=== PATIENT | female | born 1950 | race Hispanic/Latino ===

== ENCOUNTER 2016-08-10 13:59 | Inpatient (IN) | payer MEDICARE ==
--- NOTE | 2016-08-10 15:40 | Cat Scan Report ---
CT HEAD WITHOUT CONTRAST: HISTORY: CVA. Serial contiguous axial images were obtained through the cranium. Intravenous contrast material was not administered. The ventricles are normal in size and appearance. There is no mass effect or midline shift. No areas of abnormally increased or decreased attenuation are seen. No mass lesion is seen. The mastoid air cells and visualized portions of the sinuses are normal. IMPRESSION: Cranial CT scan within normal limits.
[2016-08-10 16:10] LABS: Basophils % (Auto) 0.9 % (0.0-1.8); Eosinophils % (Auto) 3.2 % (0.0-4.3); Hematocrit 38.7 % (30.3-42.9); Hemoglobin 12.4 gm/dl (10.1-14.3); Mean Corpuscular HGB Conc 32 % (30-34); Mean Corpuscular Hemoglobin 29 pg (28-32); Mean Corpuscular Volume 92 fl (79-97); Platelet Count 356 K/mm3 (140-440); Red Blood Count 4.22 M/mm3 (3.65-5.03); Red Cell Distribution Width 15.2 % (13.2-15.2); White Blood Count 9.3 K/mm3 (4.5-11.0)
[2016-08-10 16:20] LABS: INR 0.89 (0.87-1.13)
[2016-08-10 16:21] LABS: Partial Thromboplastin Time 28.2 Sec. (24.2-36.6)
[2016-08-10 16:26] LABS: Anion Gap 17 mmol/L; BUN/Creatinine Ratio 18.88; Blood Urea Nitrogen 17 mg/dL (7-17); Calcium 9.2 mg/dL (8.4-10.2); Carbon Dioxide 30 mmol/L (22-30); Chloride 100.6 mmol/L (98-107); Glucose 126 mg/dL (65-100); Potassium 4.5 mmol/L (3.6-5.0); Sodium 143 mmol/L (137-145)
[2016-08-10] MEDS ORDERED: PLAVIX PO ONE (22:32)
--- NOTE | 2016-08-10 22:33 | Emergency Department Report ---
ED Neuro Deficit HPI - General Chief Complaint: Neuro Symptoms/Deficit Stated Complaint: RT LEG NUMBNESS Time Seen by Provider: 08/10/16 22:19 Source: patient, family, RN notes reviewed Mode of arrival: Ambulatory Limitations: No Limitations, Physical Limitation - History of Present Illness Initial Comments: This is a 65-year-old female. She is previously unknown to me. Her primary care doctor is Dr. Barros. Has a past medical history of stroke, with residual right upper extremity weakness. Patient presents to the ER with right lower extremity weakness and numbness, which she woke up with. Symptoms are constant. They have no exacerbating or relieving factors. There is no headache, neck pain, chest pain, abdominal pain , shortness of breath or cough. Irritative or obstructive urinary symptoms. No bladder or bowel retention or incontinence, no saddle anesthesia. -: Gradual, hour(s) Location: left leg Presenting Symptoms: Present: Weak/Paralyzed One Side. Absent: Sudden, Severe Headache, Blurred/Loss of Vision, Facial Droop/Numbness, Unable to Speak Clearly , Altered Mental Status History of same: Yes Place: home Severity: moderate Quality: weak, numb Improves With: none Worsens With: none On Anticoagulants: No Context: gradual onset (woke up) Associated Symptoms: denies other symptoms, weakness. denies: confusion, chest pain, cough, diaphoresis, headaches, loss of appetite, nausea/vomiting, vertigo , seizures, shortness of breath, syncope - Related Data Home Medications: Home Medications Medication Instructions Recorded Confirmed Last Taken Albuterol Sulfate [Ventolin HFA] 2 puff IH Q4H PRN 08/11/16 08/11/16 08/09/16 Albuterol Sulfate [Ventolin HFA] See Protocol 08/11/16 08/09/16 AtorvaSTATin [Lipitor] 08/11/16 Unknown Benzonatate 200 mg PO 08/11/16 Unknown Gabapentin [Neurontin] 600 mg PO Q8H 08/11/16 08/11/16 08/09/16 Lansoprazole [Prevacid] 08/11/16 Unknown Lidocain2.5%/Prilocai2.5% 08/11/16 Unknown Lisinopril [Zestril TAB] 08/11/16 Unknown Morphine ER [Ms Contin ER] 15 mg PO 08/11/16 Unknown Tizanidine HCl [tiZANidine] 08/11/16 Unknown Zolpidem [Ambien] 10 mg PO QHS 08/11/16 08/11/16 08/10/16 glipiZIDE [Glucotrol] 08/11/16 08/09/16 metFORMIN [Glucophage] 08/11/16 08/09/16 oxyCODONE /ACETAMINOPHEN [Percocet 1 tab PO Q6HR PRN 08/11/16 08/11/16 08/10/16 5/325] Allergies/Adverse Reactions: Allergies Allergy/AdvReac Type Severity Reaction Status Date / Time aspirin Allergy Hives Verified 08/10/16 14:45 codeine Allergy Hives Verified 08/10/16 14:45 iodine Allergy Rash Verified 08/10/16 14:45 latex Allergy Rash Verified 08/10/16 14:45 povidone-iodine Allergy Rash Verified 08/10/16 14:45 [From Betadine] soap [From Betadine] Allergy Rash Verified 08/10/16 14:45 ED Review of Systems ROS: Stated complaint: RT LEG NUMBNESS Other details as noted in HPI Constitutional: denies: fever Eyes: denies: eye discharge ENT: denies: epistaxis Respiratory: denies: cough Cardiovascular: denies: chest pain Gastrointestinal: denies: abdominal pain Genitourinary: denies: urgency Musculoskeletal: as per HPI Skin: denies: lesions Neurological: weakness, abnormal gait ED Past Medical Hx - Past Medical History Previous Medical History?: Yes Hx CVA: Yes (right sided weakness) Hx Asthma: Yes Additional medical history: osteoarthritis, chronic pain - Surgical History Past Surgical History?: Yes Additional Surgical History: nerve stimulator, hysterectomy - Social History Smoking Status: Never Smoker Substance Use Type: None - Medications Home Medications: Home Medications Medication Instructions Recorded Confirmed Last Taken Type Albuterol Sulfate [Ventolin HFA] 2 puff IH Q4H PRN 08/11/16 08/11/16 08/09/16 History Albuterol Sulfate [Ventolin HFA] See Protocol 08/11/16 08/09/16 History AtorvaSTATin [Lipitor] 08/11/16 Unknown History Benzonatate 200 mg PO 08/11/16 Unknown History Gabapentin [Neurontin] 600 mg PO Q8H 08/11/16 08/11/16 08/09/16 History Lansoprazole [Prevacid] 08/11/16 Unknown History Lidocain2.5%/Prilocai2.5% 08/11/16 Unknown History Lisinopril [Zestril TAB] 08/11/16 Unknown History Morphine ER [Ms Contin ER] 15 mg PO 08/11/16 Unknown History Tizanidine HCl [tiZANidine] 08/11/16 Unknown History Zolpidem [Ambien] 10 mg PO QHS 08/11/16 08/11/16 08/10/16 History glipiZIDE [Glucotrol] 08/11/16 08/09/16 History metFORMIN [Glucophage] 08/11/16 08/09/16 History oxyCODONE /ACETAMINOPHEN [Percocet 1 tab PO Q6HR PRN 08/11/16 08/11/16 08/10/16 History 5/325] ED Neuro Physical Exam - General Limitations: Physical Limitation General appearance: alert, in no apparent distress Suspected Stroke: Yes - Head Head exam: Present: atraumatic, normocephalic - Eye Eye exam: Present: normal appearance, EOMI. Absent: nystagmus - ENT ENT exam: Present: normal exam, normal orophraynx, mucous membranes moist, normal external ear exam - Neck Neck exam: Present: normal inspection, full ROM. Absent: tenderness, meningismus - Respiratory Respiratory exam: Present: normal lung sounds bilaterally. Absent: respiratory distress, wheezes, rales, rhonchi, stridor, chest wall tenderness - Cardiovascular Cardiovascular Exam: Present: regular rate, normal rhythm, normal heart sounds. Absent: bradycardia, tachycardia, irregular rhythm, systolic murmur, diastolic murmur, rubs, gallop - GI/Abdominal GI/Abdominal exam: Present: soft, normal bowel sounds. Absent: distended, tenderness, guarding, rebound, rigid, pulsatile mass - Extremities Exam Extremities exam: Present: normal inspection, normal capillary refill, other ( there is 5/5 strength left upper extremity, left lower extremity. Sensation intact to light touch and pain in the left upper extremity, left lower extremity. Right upper extremity is 4/5 strength. This is chronic.Right lower extremity is 3/5 strength. Unable to lift against gravity. Decreased sensation to light touch and pinprick. This is new.). Absent: full ROM, tenderness, pedal edema, joint swelling, calf tenderness - Back Exam Back exam: Present: normal inspection - Neurological Exam Neurological exam: Present: alert, oriented X3 - NIHSS Assessment Interval: Baseline 1a. Level of Consciousness: alert 1b. LOC Questions: answers correctly 1c. LOC Commands: performs tasks correctly 2. Best Gaze: normal 3. Visual: no visual loss 4. Facial Palsy: normal symmetrical movement 5b. Motor Arm Right: drift 5a. Motor Arm Left: no drift 6a. Motor Leg Left: no drift 6b. Motor Leg Right: some gravity effort 7. Limb Ataxia: absent 8. Sensory: mild/moderate sensory loss 9. Best Language: no aphasia 10. Dysarthria: normal 11. Extinction/Inattention: no abnormality Total Score: 4 Stroke Severity: Minor Stroke - Psychiatric Psychiatric exam: Present: normal affect, normal mood - Skin Skin exam: Present: warm, dry, intact, normal color. Absent: rash ED Course Vital Signs 08/10/16 14:37 Temperature 98.0 F Pulse Rate 84 Blood Pressure 160/86 O2 Sat by Pulse 99 Oximetry - Reevaluation(s) Reevaluation #1: 08/10/16 23:14 differential diagnosis: Peripheral neuropathy, subacute stroke, wake up stroke, urinary tract infection, pneumonia Assessment and plan: 65-year-old female who woke up with right lower extremity weakness and numbness which is worse than her baseline. Left lower extremities strength and sensation are intact. There is no bladder or bowel retention or incontinence, there is no saddle anesthesia, her clinical history does not suggest epidural compression syndrome. She is not a TPA candidate as she woke up with symptoms. She is not taking antiplatelet medication at this time. Urinalysis is pending. Noncontrast CT scan of the head essentially negative. Patient to be admitted for further evaluation and workup for presumed subacute stroke. Case is discussed with the Hospital physician, Dr. Olguin, who accepts the patient to her service. - Lab Data Result diagrams: 08/10/16 15:48 08/10/16 15:48 Lab Results 08/10/16 08/10/16 08/10/16 Range/Units 15:48 15:48 15:48 WBC 9.3 (4.5-11.0) K/mm3 RBC 4.22 (3.65-5.03) M/mm3 Hgb 12.4 (10.1-14.3) gm/dl Hct 38.7 (30.3-42.9) % MCV 92 (79-97) fl MCH 29 (28-32) pg MCHC 32 (30-34) % RDW 15.2 (13.2-15.2) % Plt Count 356 (140-440) K/mm3 Lymph % (Auto) 27.4 (13.4-35.0) % [place] % (Auto) 6.9 (0.0-7.3) % Eos % (Auto) 3.2 (0.0-4.3) % Baso % (Auto) 0.9 (0.0-1.8) % Lymph # 2.5 (1.2-5.4) K/mm3 [place] # 0.6 (0.0-0.8) K/mm3 Eos # 0.3 (0.0-0.4) K/mm3 Baso # 0.1 (0.0-0.1) K/mm3 Seg Neutrophils % 61.6 (40.0-70.0) % Seg Neutrophils # 5.7 (1.8-7.7) K/mm3 PT 11.9 L (12.2-14.9) Sec. INR 0.89 (0.87-1.13) APTT 28.2 (24.2-36.6) Sec. Thrombin Time (15.1-19.6) Sec. Sodium 143 (137-145) mmol/L Potassium 4.5 (3.6-5.0) mmol/L Chloride 100.6 (98-107) mmol/L Carbon Dioxide 30 (22-30) mmol/L Anion Gap 17 mmol/L BUN 17 (7-17) mg/dL Creatinine 0.9 (0.7-1.2) mg/dL Estimated GFR > 60 ml/min BUN/Creatinine Ratio 18.88 % Glucose 126 H (65-100) mg/dL Calcium 9.2 (8.4-10.2) mg/dL Troponin T < 0.010 (0.00-0.029) ng/mL 08/10/16 Range/Units 15:48 WBC (4.5-11.0) K/mm3 RBC (3.65-5.03) M/mm3 Hgb (10.1-14.3) gm/dl Hct (30.3-42.9) % MCV (79-97) fl MCH (28-32) pg MCHC (30-34) % RDW (13.2-15.2) % Plt Count (140-440) K/mm3 Lymph % (Auto) (13.4-35.0) % [place] % (Auto) (0.0-7.3) % Eos % (Auto) (0.0-4.3) % Baso % (Auto) (0.0-1.8) % Lymph # (1.2-5.4) K/mm3 [place] # (0.0-0.8) K/mm3 Eos # (0.0-0.4) K/mm3 Baso # (0.0-0.1) K/mm3 Seg Neutrophils % (40.0-70.0) % Seg Neutrophils # (1.8-7.7) K/mm3 PT (12.2-14.9) Sec. INR (0.87-1.13) APTT (24.2-36.6) Sec. Thrombin Time 15.1 (15.1-19.6) Sec. Sodium (137-145) mmol/L Potassium (3.6-5.0) mmol/L Chloride (98-107) mmol/L Carbon Dioxide (22-30) mmol/L Anion Gap mmol/L BUN (7-17) mg/dL Creatinine (0.7-1.2) mg/dL Estimated GFR ml/min BUN/Creatinine Ratio % Glucose (65-100) mg/dL Calcium (8.4-10.2) mg/dL Troponin T (0.00-0.029) ng/mL When compared to previous EKG there are: previous EKG unavailable 08/10/16 23:16 with normal sinus, 79 bpm, low voltage, left axis, not consistent with STEMI, Q waves noted in the high lateral leads. Not morphologically consistent with STEMI. - Radiology Data Radiology results: report reviewed, image reviewed Noncontrast CAT scan of the head is negative. X-ray of the chest is negative. Critical care attestation.: If time is entered above; I have spent that time in minutes in the direct care of this critically ill patient, excluding procedure time. ED Disposition Clinical Impression: Right leg weakness, History of stroke Disposition: OP ADMITTED IP TO THIS HOSP Is pt being admited?: Yes Condition: Stable
[2016-08-10] MEDS ORDERED: DULCOLAX PR PRN (23:40)
[2016-08-10] MEDS ORDERED: DUONEB 0.5 MG-3 MG/3 ML SOLN IH PRN (23:40)
[2016-08-10] MEDS ORDERED: MILK OF MAGNESIA PO PRN (23:40)
[2016-08-10] MEDS ORDERED: SODIUM CHLORIDE FLUSH SYRINGE 10 ML IV PRN (23:40)
[2016-08-10] MEDS ORDERED: AMBIEN PO PRN (23:40)
[2016-08-10] MEDS ORDERED: ZOFRAN IV PRN (23:40)
[2016-08-10] MEDS ORDERED: TYLENOL PO PRN (23:40)
[2016-08-10] MEDS ORDERED: PHENERGAN PR PRN (23:40)
[2016-08-10] MEDS ORDERED: REGLAN PO PRN (23:40)
--- NOTE | 2016-08-10 23:40 | History and Physical Report ---
History of Present Illness Date of examination: 08/10/16 Date of admission: 08/10/16 23:17 Chief complaint: Right LE weakness History of present illness: This is a 65-year-old female with a past medical history of stroke, with residual right upper extremity weakness, presents to the ER with right lower extremity weakness and numbness. Patient states that she woke up with these symptom. There is no headache, neck pain, chest pain, abdominal pain, shortness of breath or cough. CT head did not show any acute process, she is getting admitted with stroke protocol. Past medical History: h/o HTN, DM2, CVA 2005 with RUE weakness. Chronic back pain. h/o asthma. Her primary care doctor is Dr. Barros. Past surgical History: s/p Hysterectomy, right breast lumpectomy. Back spinal stimulator placement 3 years ago. Social History: Lives with family, denies any smoking, drinking and elicit drug abuse. Family History: Significant for DM and HTN. Review of System: Constitutional: no fever, no chills, no weight loss Ears, eyes, nose, mouth and throat: no nasal congestion, no nasal discharge, no sinus pressure, no vision change, no red eye. Neck: No neck pain or rigidity. Cardiovascular: No chest pain, no orthopnea, no palpitations, no leg swelling Respiratory: No shortness of breath, no cough, no congestion, no wheezing Gastrointestinal: no abdominal pain, no nausea, no vomiting Genitourinary : no dysuria, no hematuria Musculoskeletal: no joint swelling or muscle ache, chronic back pain Integumentary: no rash, no pruritis Neurological: left lower extrimity weakness Endocrine: no cold or heat intolerance, no polyuria or polydipsia Hematologic/Lymphatic: no easy bruising, no easy bleeding, no gland swelling Allergic/Immunologic: no urticaria, no angioedema. Medications and Allergies Allergies Allergy/AdvReac Type Severity Reaction Status Date / Time aspirin Allergy Hives Verified 08/10/16 14:45 codeine Allergy Hives Verified 08/10/16 14:45 iodine Allergy Rash Verified 08/10/16 14:45 latex Allergy Rash Verified 08/10/16 14:45 povidone-iodine Allergy Rash Verified 08/10/16 14:45 [From Betadine] soap [From Betadine] Allergy Rash Verified 08/10/16 14:45 Home Medications Medication Instructions Recorded Confirmed Last Taken Type Albuterol Sulfate [Ventolin HFA] 2 puff IH Q4H PRN 08/11/16 08/11/16 08/09/16 History Albuterol Sulfate [Ventolin HFA] See Protocol 08/11/16 08/09/16 History AtorvaSTATin [Lipitor] 08/11/16 Unknown History Benzonatate 200 mg PO 08/11/16 Unknown History Gabapentin [Neurontin] 600 mg PO Q8H 08/11/16 08/11/16 08/09/16 History Lansoprazole [Prevacid] 08/11/16 Unknown History Lidocain2.5%/Prilocai2.5% 08/11/16 Unknown History Lisinopril [Zestril TAB] 08/11/16 Unknown History Morphine ER [Ms Contin ER] 15 mg PO 08/11/16 Unknown History Tizanidine HCl [tiZANidine] 08/11/16 Unknown History Zolpidem [Ambien] 10 mg PO QHS 08/11/16 08/11/16 08/10/16 History glipiZIDE [Glucotrol] 08/11/16 08/09/16 History metFORMIN [Glucophage] 08/11/16 08/09/16 History oxyCODONE /ACETAMINOPHEN [Percocet 1 tab PO Q6HR PRN 08/11/16 08/11/16 08/10/16 History 5/325] Exam - Physical Exam Narrative exam: GENERAL: This is well-developed obese WF lying on bed appeared to be in no discomfort. HEENT: Normocephalic. Atraumatic. Extraocular motions are intact. No conjunctival congestion or icterus. Patient has moist mucous membranes. External auditory canal and nares patent bilaterally. NECK: Supple. Trachea midline. No JVD, thyromagaly or lymphadenopathy. CHEST/LUNGS: Clear to auscultated bilaterally. There is no respiratory distress noted, breathing nonlabored. No wheezes crackles or rhonchi. HEART/CARDIOVASCULAR: Regular in rate and rhythm. PMI at the apex. There is no gallop rub or murmur. ABDOMEN: Abdomen is soft, nontender. Patient has normal bowel sounds. There is no abdominal distention. No organomagaly or rigidity. SKIN: There is no rash, no erythrema. There is no diaphoresis. Warm and dry. NEUROLOGY: The patient is awake, alert, and oriented. The patient is cooperative. The patient has normal speech. Right lower extrimity weakness with foot drop. MUSCULOSKELETAL: No joint effusion or tenderness. Muscle strength equal bilaterally. No muscle wasting. EXTRIMITY: No edema, cyanosis or clubbing. PSYCH: No depression or anxiety noted. Cooperative. - Constitutional Vitals: Temp Pulse Resp BP Pulse Ox 98.0 F 84 160/86 99 08/10/16 14:37 08/10/16 14:37 08/10/16 14:37 08/10/16 14:37 Results - Labs CBC & Chem 7: 08/10/16 15:48 08/10/16 15:48 Labs: Laboratory Last Values WBC 9.3 K/mm3 (4.5-11.0) 08/10/16 15:48 RBC 4.22 M/mm3 (3.65-5.03) 08/10/16 15:48 Hgb 12.4 gm/dl (10.1-14.3) 08/10/16 15:48 Hct 38.7 % (30.3-42.9) 08/10/16 15:48 MCV 92 fl (79-97) 08/10/16 15:48 MCH 29 pg (28-32) 08/10/16 15:48 MCHC 32 % (30-34) 08/10/16 15:48 RDW 15.2 % (13.2-15.2) 08/10/16 15:48 Plt Count 356 K/mm3 (140-440) 08/10/16 15:48 Lymph % (Auto) 27.4 % (13.4-35.0) 08/10/16 15:48 [place] % (Auto) 6.9 % (0.0-7.3) 08/10/16 15:48 Eos % (Auto) 3.2 % (0.0-4.3) 08/10/16 15:48 Baso % (Auto) 0.9 % (0.0-1.8) 08/10/16 15:48 Lymph # 2.5 K/mm3 (1.2-5.4) 08/10/16 15:48 [place] # 0.6 K/mm3 (0.0-0.8) 08/10/16 15:48 Eos # 0.3 K/mm3 (0.0-0.4) 08/10/16 15:48 Baso # 0.1 K/mm3 (0.0-0.1) 08/10/16 15:48 Seg Neutrophils % 61.6 % (40.0-70.0) 08/10/16 15:48 Seg Neutrophils # 5.7 K/mm3 (1.8-7.7) 08/10/16 15:48 PT 11.9 Sec. (12.2-14.9) L 08/10/16 15:48 INR 0.89 (0.87-1.13) 08/10/16 15:48 APTT 28.2 Sec. (24.2-36.6) 08/10/16 15:48 Thrombin Time 15.1 Sec. (15.1-19.6) 08/10/16 15:48 Sodium 143 mmol/L (137-145) 08/10/16 15:48 Potassium 4.5 mmol/L (3.6-5.0) 08/10/16 15:48 Chloride 100.6 mmol/L (98-107) 08/10/16 15:48 Carbon Dioxide 30 mmol/L (22-30) 08/10/16 15:48 Anion Gap 17 mmol/L 08/10/16 15:48 BUN 17 mg/dL (7-17) 08/10/16 15:48 Creatinine 0.9 mg/dL (0.7-1.2) 08/10/16 15:48 Estimated GFR > 60 ml/min 08/10/16 15:48 BUN/Creatinine Ratio 18.88 % 08/10/16 15:48 Glucose 126 mg/dL (65-100) H 08/10/16 15:48 Calcium 9.2 mg/dL (8.4-10.2) 08/10/16 15:48 Troponin T < 0.010 ng/mL (0.00-0.029) 08/10/16 15:48 - Imaging and Cardiology Chest x-ray: pending CT Scan - head: report reviewed (no acute infract) Assessment and Plan Assessment and plan: Possible acute CVA History of previous CVA with right upper extremity weakness Right LE weakness, new onset DM type 2 HTN, uncontrolled h/o asthma , stable chronic back pain Plan: Admit to medicine I'll obtain 2-D echo, MRI of the brain, carotid Doppler Place neurologic consult PT OT and ST vital Cardiac diet if clear by ST Monitor BP GI and DVT prophylaxis Place on aspirin and statin resume home meds If MRI head negative then need work up for lumber spinal pathology for her symptom. Advance Directives: Yes Plan of care discussed with patient/family: Yes
[2016-08-11 00:10] LABS: Bacteria,Urine 1+ /HPF (Negative); Bilirubin,Urine NEG (Negative); Blood,Urine SM (Negative); Ketones,Urine NEG (Negative); Leukocyte Esterase,Urine SM (Negative); Mucus,Urine FEW /HPF; Nitrite,Urine NEG (Negative); Protein,Urine <15 mg/dL mg/dL (Negative); Urobilinogen,Urine < 2.0 mg/dL (<2.0)
[2016-08-11] MEDS ORDERED: PROVENTIL IH PRN (02:10)
[2016-08-11] MEDS: NORCO 5/325 PO PRN ×2 (03:11→17:18)
[2016-08-11] MEDS ORDERED: PROAIR IH PRN (06:30)
[2016-08-11] MEDS ORDERED: PERCOCET 5/325 PO PRN (06:30)
--- NOTE | 2016-08-11 08:05 | XRay Report ---
AP CHEST : 08/10/16 CLINICAL: Altered mental status. COMPARISON:None FINDINGS: Normal heart and pulmonary vessels. The lungs are normally expanded and clear. A neurostimulator is identified in the mid thoracic spine. IMPRESSION: No acute cardiopulmonary process.
[2016-08-11] MEDS: DUONEB 0.5 MG-3 MG/3 ML SOLN IH SCH ×3 (08:09→20:03)
[2016-08-11] MEDS: TESSALON PERLES PO SCH ×2 (08:34→17:14)
[2016-08-11] MEDS: COLACE PO SCH ×3 (08:34→22:17)
[2016-08-11] MEDS: PEPCID IV SCH ×3 (08:34→22:17)
[2016-08-11] MEDS: NEURONTIN PO SCH ×2 (08:34→17:15)
--- NOTE | 2016-08-11 09:30 | Admit Criteria Form ---
Admission Criteria Documentation: NEUROLOGY GRG Clinical Indications for Admission to Inpatient Care (Place ' X' for any and all applicable criteria): Hospital admission is needed for appropriate care of the patient because of ANY ONE of the following: [ ]I. New-onset or worsening altered mental status remaining after emergency or observation level care (as appropriate) (9)(10)(11) [ ]II. Severe YEAST FERMENTATION ATTENDANT infections or inflammatory conditions, including ANY ONE of the following(1)(2)(3): [ ]a) Intracranial abscess [ ]b) Spinal abscess or myelitis [ ]c) Tuberculous or other nonbacterial, nonviral YEAST FERMENTATION ATTENDANT infection(8) [ ]III. Encephalitis(1)(2)(3) [ ]IV. Status epilepticus or repetitive seizures not controlled with emergent treatment [A] (7)(8) [ ]V. Transient alteration in consciousness with high-risk etiology; examples include (12)(13): [ ]a) Cardiovascular source [ ]b) Cataplexy [ ]. Cerebral aneurysm requiring ANY ONE of the following(14): [ ]a) IV antihypertensives or vasoactive agents [ ]b) Sedation and analgesia for suspected leak [ ]c) Need for external ventricular drainage and cerebral perfusion pressure monitoring [ ]d) Emergent evaluation to determine need for surgical clipping or endovascular coiling by interventional radiology. If surgery is required ( Also use Craniotomy, Supratentorial, for Surgery of Bleeding Intracranial Aneurysm (for bleeding aneurysm) or Craniotomy, Supratentorial (for nonbleeding aneurysm) as appropriate. [ ]VII. Altered mental status that is severe or persistent(16) [ ]VIII New-onset severe neurologic findings requiring inpatient care; examples include: [ ]a) Papilledema [ ]b) Cerebral edema [ ]c) Mass effect on imaging [ ]IX. New-onset severe neurologic symptom requiring inpatient care indicated by ANY ONE of the following: [ ]a) Aphasia(15) [ ]b) Weakness (grade 3 or less) [ ]c) Paralysis (eg, hemiplegia) [ ]d) Spasticity(16) [ ]e) Ataxia(17) [ ]f) Amnesia(18) [ ]g) Involuntary movements(19) [ ]h) Vertigo [ ]i) Other severe neurologic symptom not treatable at alternative level of care (eg, observation care) [ ]X. Guillain-Abbotsford syndrome(20) [ ]XI. Myasthenia gravis crisis or inpatient monitoring need as indicated by ANY ONE of the following(21): [ ]a) Inadequate airway protection [ ]b) Respiratory insufficiency requiring intubation or inpatient. monitoring [ ]c) Progressive dysphagia with failure to thrive [ ]d) Intensive treatment (eg, course of plasmapheresis) with inadequate outpatient situation to monitor patients status [ ]XII. Multiple sclerosis or other acute demyelinating disease requiring inpatient care as indicated by ANY ONE of the following (22)(23): [ ]a) Acute severe deterioration requiring inpatient treatment (eg, IV steroids, plasmapheresis, close observation) [ ]b) Acute complication requiring inpatient care (eg, sepsis, severe decubitus, aspiration) [ ]XIII. Intracranial hypertension (eg, pseudotumor cerebri) requiring inpatient care (eg, acute visual loss, inadequate oral intake) (24) [ ]XIV.Parkinson disease requiring inpatient care (Also use Optimal Recovery Care Criteria or General Recovery Criteria as appropriate) indicated by ANY ONE of the following(25): [ ]a) Infection (eg, aspiration pneumonia) not treatable at alternative level of care [ ]b) Volume depletion not responsive to emergency and observation care treatment (as appropriate) [ ]c) Life-threatening agitation or psychotic behavior not treatable on emergency, observation care, or alternative level (eg, residential) basis [ ]d) Severe medication withdrawal effects (eg, freezing, neuroleptic malignant syndrome) not responsive to emergency and observation care treatment (as appropriate) [ ]e) Other severe manifestation not treatable at alternative level of care [ ]XV.Amyotrophic lateral sclerosis with inpatient care needs as indicated by ANY ONE of the following(26): [ ]a) Acute complications requiring inpatient care (Use Optimal Recovery Care Criteria or General Recovery Criteria as appropriate); examples include: [ ]i) Aspiration pneumonia [ ]ii) Sepsis [ ]b) Dehydration or hypovolemia (not responsive to emergency and observation care treatment as appropriate) AND artificial support desired [ ]c) Inadequate airway protection AND artificial support desired [ ]d) Severe ventilatory insufficiency AND artificial support desired [ ]XVI.Severe myopathy, neuropathy, or other neuromuscular disease as indicated by ANY ONE of the following: [ ]a) New-onset severe diffuse weakness (eg, strength 3/5 or less) [ ]b) Severe dysphagia [ ]c) Dyspnea at rest or with minimal exertion (new) [ ]d) Inadequate airway protection [ ]e) Inadequate ventilation as indicated by ANY ONE of the following : [ ]i) Partial pressure of carbon dioxide greater than 44 mm Hg (5.9 kPa) (new) [ ]ii) Reduced peak expiratory flow rate (new) [ ]iii) Vital capacity less than 50% of predicted ( less than 15 mL/kg) [ ]iv) Peak inspiratory force less negative than -30 cm H20 (-2942 Pa) [ ]XVII.Complications of congenital or degenerative disease (eg, infection, seizures, dehydration, injury) not responsive to emergency and observation care treatment (as appropriate ) [C](16)(29)(30) [ ]XVIII.Suspected or confirmed nerve or muscle toxic injury, including ANY ONE of the following: [ ]a) Rhabdomyolysis(31) [ ]b) Botulism(32) [ ]c) Other severe toxin-induced sign or symptom [ ]XIX. Neurologic trauma requiring inpatient treatment (medical) indicated by ANY ONE of the following(33)(34): [ ]a) Vital signs or neurologic signs more frequently than every 4 hours [ ]b) Hyperosmolar therapy [ ]c) Respiratory monitoring [ ]d) Intracranial pressure monitoring and treatment [ ]e) Stabilization and immobilization device placement (eg, braces, body jacket) [ ]f) Intubation & mechanical ventilation for airway protection or therapeutic hyperventilation [ ]g) Other treatment or monitoring needed that requires inpatient level of care [ ]XX.Complications of neurologic devices (eg, ventricular shunt, neurostimulator) requiring ANY ONE of the following(35)(36): [ ]a) IV antibiotics with monitoring while awaiting culture results [ ]b) Monitoring for hydrocephalus [ ]XXI Vasculitis with ANY ONE of the following(4)(5): [ ]a) Altered mental status [ ]b) Psychosis [ ]c) Seizures [X ]XXII. Neurology condition and ALL of the following: [ X]a) Symptom or finding for which emergency and observation care have failed or are not considered appropriate (Use General Criteria: Observation Care as appropriate) [ X]b) Presence of ANY ONE of the following: [X]i) A General Admission Criteria [ ]ii A Pediatric General Admission Criteria The original [facility] content created by [facility] has been revised. The portions of the content which have been revised are identified through the use of italic text or in bold, and [facility] has neither reviewed nor approved the modified material. All other unmodified content is copyright [facility] Please see references footnoted in the original [facility] edition 2016 Admission Criteria Met: Yes
[2016-08-11] MEDS ORDERED: ASPIRIN PO SCH (10:00)
--- NOTE | 2016-08-11 10:28 | Consultation ---
History of Present Illness Consult date: 08/11/16 Requesting physician: JAZLYN CONCEPCION Reason for Consult: RLE weakness/numb Chief complaint: right leg numb History of present illness: 65 YO F Hx Hx multiple prior strokes w/ residual RLE numbness and weakness last in 2005 who p/w wake up RLE numbness and worsened weakness. Sx were noted upon waking 08/10 8 AM. Last well 08/09 11 PM. Sx are constant. There are no clear aggravating, relieving, or temporal factors. Severity is such to cause difficulty walking. Past History Past Medical History: diabetes, hypertension Past Surgical History: No surgical history Social history: single Family history: hypertension Medications and Allergies Allergies Allergy/AdvReac Type Severity Reaction Status Date / Time aspirin Allergy Hives Verified 08/10/16 14:45 codeine Allergy Hives Verified 08/10/16 14:45 iodine Allergy Rash Verified 08/10/16 14:45 latex Allergy Rash Verified 08/10/16 14:45 povidone-iodine Allergy Rash Verified 08/10/16 14:45 [From Betadine] soap [From Betadine] Allergy Rash Verified 08/10/16 14:45 Home Medications Medication Instructions Recorded Confirmed Last Taken Type Albuterol Sulfate [Ventolin HFA] 2 puff IH Q4H PRN 08/11/16 08/11/16 08/09/16 History Albuterol Sulfate [Ventolin HFA] See Protocol 08/11/16 08/09/16 History AtorvaSTATin [Lipitor] 08/11/16 Unknown History Benzonatate 200 mg PO 08/11/16 Unknown History Gabapentin [Neurontin] 600 mg PO Q8H 08/11/16 08/11/16 08/09/16 History Lansoprazole [Prevacid] 08/11/16 Unknown History Lidocain2.5%/Prilocai2.5% 08/11/16 Unknown History Lisinopril [Zestril TAB] 08/11/16 Unknown History Morphine ER [Ms Contin ER] 15 mg PO 08/11/16 Unknown History Tizanidine HCl [tiZANidine] 08/11/16 Unknown History Zolpidem [Ambien] 10 mg PO QHS 08/11/16 08/11/16 08/10/16 History glipiZIDE [Glucotrol] 08/11/16 08/09/16 History metFORMIN [Glucophage] 08/11/16 08/09/16 History oxyCODONE /ACETAMINOPHEN [Percocet 1 tab PO Q6HR PRN 08/11/16 08/11/16 08/10/16 History 5/325] Active Meds: Active Medications Acetaminophen (Tylenol) 650 mg PO Q4H PRN PRN Reason: Pain, Mild (1-3) Acetaminophen/Hydrocodone Bitart ([place] 5/325) 2 each PO Q6H PRN PRN Reason: Pain, Moderate (4-6) Last Admin: 08/11/16 03:11 Dose: 2 each Albuterol (Proventil) 2.5 mg IH Q4HRT PRN PRN Reason: Shortness Of Breath Albuterol/Ipratropium (Duoneb 0.5 Mg-3 Mg/3 Ml Soln) 1 ampul IH Q6HRT [facility] Last Admin: 08/11/16 08:09 Dose: 1 ampul Benzonatate (Tessalon Perles) 200 mg PO BID@0800,1800 [facility] Last Admin: 08/11/16 08:34 Dose: 200 mg Bisacodyl (Dulcolax) 10 mg DC QDAY PRN PRN Reason: Constipation Docusate Sodium (Colace) 100 mg PO BID [facility] Last Admin: 08/11/16 08:34 Dose: 100 mg Famotidine (Pepcid) 20 mg IV BID [facility] Last Admin: 08/11/16 08:34 Dose: 20 mg Gabapentin (Neurontin) 600 mg PO Q8H [facility] Last Admin: 08/11/16 08:34 Dose: 600 mg Insulin Human Regular (Novolin R) 0 units SUB-Q ACHS [facility] PRN Reason: Protocol Magnesium Hydroxide (Milk Of Magnesia) 30 ml PO Q4H PRN PRN Reason: Constipation Metoclopramide HCl (Reglan) 10 mg PO Q6H PRN PRN Reason: Nausea And Vomiting Ondansetron HCl (Zofran) 4 mg IV Q8H PRN PRN Reason: N/V unrelieved by Reglan Oxycodone/Acetaminophen (Percocet 5/325) 1 tab PO Q6H PRN PRN Reason: Pain Promethazine HCl (Phenergan) 25 mg DC Q6H PRN PRN Reason: Nausea And Vomiting Simvastatin (Zocor) 20 mg PO QHS [facility] Sodium Chloride (Sodium Chloride Flush Syringe 10 Ml) 10 ml IV PRN PRN PRN Reason: LINE FLUSH Zolpidem Tartrate (Ambien) 5 mg PO QHS PRN PRN Reason: Insomnia Last Admin: 08/11/16 03:12 Dose: 5 mg Zolpidem Tartrate (Ambien) 10 mg PO QHS [facility] Review of Systems All systems: negative Neurological: paralysis, weakness, parathesias, numbness, tingling, gait dysfunction, motor disturbance, sensory deficit Physical Examination - Vital Signs Vital Signs: Vital Signs Temp Pulse BP Pulse Ox 98.0 F 84 160/86 99 08/10/16 14:37 08/10/16 14:37 08/10/16 14:37 08/10/16 14:37 - Constitutional General appearance: comfortable - EENT EENT: Present: ATNC, PERRL, mucous membranes moist, hearing intact, vision intact - Respiratory Respiratory: Present: chest non-tender, normal breath sounds, no respiratory distress - Cardiovascular Cardiovascular: Present: regular rate Extremities: Present: no peripheral edema bilatateraly, no clubbing, cyanosis, no inflammation, no ischemia or petechiae - Gastrointestinal Gastrointestinal: Present: normoactive bowel sounds, non-distended - Integumentary Integumentary: Present: normal - Neurologic Cranial nerve examination: PERRL, EOMI, VFF, V1/V2/V3 grossly intact, tongue midline, intact shoulder shrug, intact cough reflex, Intact Vestibulo-ocular r, intact corneal reflex, facial droop (on R), normal palatal elevation Speech examination: intact Sensorimotor examination: pronator drift (on R), hemiparesis (on R) Motor examination - right side: 2/5: hip flexors, dorsiflexion, toe extension ( EHL), 4/5: biceps, triceps, wrist flexion, wrist extension, microfilming document preparer, knee extensors , plantarflexion Motor examination - left side: 5/5: biceps, triceps, wrist flexion, wrist extension, microfilming document preparer, hip flexors, knee extensors, dorsiflexion, toe extension (EHL) , plantarflexion Detailed sensory examination: light touch (diminished to LT and ) Reflex and gait examination: Babinski's sign (on R) Reflexes: 0: ankle, 1+: knee, 2+: bicep, tricep - Musculoskeletal Musculoskeletal: Present: no fluid collection, no pain, normal range of motion - Psychiatric Psychiatric: Present: mood/affect appropriate, cooperative Results - Laboratory Findings CBC and BMP: 08/10/16 15:48 08/10/16 15:48 Abnormal Lab Findings: Abnormal Labs 08/11/16 08/11/16 05:27 05:27 Hemoglobin A1c 6.9 H Triglycerides 167 H Assessment and Plan 65 YO F Hx HTN, DM2, prior strokes last 2005 not currently on blood thinners w/ residual RLE weakness who p/w wake up reported worsened RLE weakness but also R hemisensory loss. I am suspicious for breakthrough recurrent lacunar stroke. Plan and Recommendation: 1. No indication for pharmacologic thrombolysis with IV tPA or mechanical thrombectomy due to last known normal > 6 hrs from presentation. Current NIHSS 4. 2. Telemetry bed w/ Q4 hour neuro checks 3. Brain imaging: MRI Brain w/o Flex Stroke Protocol 4. Vascular Imaging: Bilateral Carotid Duplex U/S 5. TTE to eval for possible cardiac source of embolism 6. Serum Labs: HgA1c, LDL 7. Permissive HTN for first 24-48 hours: HOB < 30 degrees, isotonic IVF prn and refrain from active Tx of HTN unless BP > 185/105 or pt develops malignant HTN. Can lower MAPs by 10-15% daily to reach goal SBP 120-160 after permissive HTN period or if MRI neg for infarction. 8. Secondary stroke prevention: Plavix 75mg QDay as allergic to ASA. Upgrade to full dose statin therapy (Crestor 20mg or 40mg OR Lipitor 40mg or 80mg Daily OR Zocor 40mg QDay) for goal LDL < 70. No firm indication at this point for therapeutic anticoagulation as pt has not had AFib captured on telemetry monitoring. 9. F/E/N: isotonic IVF prn, prn replete, bedside speech/swallow eval prior to PO intake. 10. DVT Prophylaxis 11. Stroke education, PT/OT/Speech Therapy consults, CM evaluation 12. For any changes in neurologic status, pls obtain STAT CTH w/o contrast and call neurology
[2016-08-11] MEDS ORDERED: D50W (25GM) IV PRN (15:46)
--- NOTE | 2016-08-11 15:46 | Progress Note ---
Assessment and Plan Assessment and plan: Acute CVA - CT head is negative - patient is not a candidate for TPA, she, after the window period - We couldn't do MRI because she has back metallic stimulator - She is on Plavix - Her LDL is 55 - neurochecks - Bilateral Doppler carotids, no significant stenosis - Adequately pending - Neurology consult appreciated History of previous CVA with right upper extremity weakness Right LE weakness, new onset DM type 2 - On insulin regimen HTN, uncontrolled - Term acute hypertension h/o asthma , stable chronic back pain - Pain control History Interval history: I have seen and evaluated this patient, she has some weakness of the right lower extremity. Hospitalist Physical - Physical exam Narrative exam: Not in cardiopulmonary distress. The patient is obese. Vital signs as documented. Head exam is unremarkable. No scleral icterus . Neck is without jugular venous distension, thyromegaly, or carotid bruits. Lungs are clear to auscultation. Cardiac exam reveals regular rate and Rhythm. First and second heart sounds normal. No murmurs, rubs or gallops. Abdominal exam reveals normal bowel sounds, no masses, no organomegaly and no aortic enlargement. Extremities are nonedematous and both femoral and pedal pulses are normal. 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 Mild weakness of the right lower extremity. - Constitutional Vitals: Temp Pulse Resp BP Pulse Ox 98.0 F 104 H 20 159/76 100 08/11/16 12:00 08/11/16 14:47 08/11/16 14:47 08/11/16 12:00 08/11/16 12:00 Results - Labs CBC & Chem 7: 08/10/16 15:48 08/10/16 15:48 Labs: Laboratory Last Values WBC 9.3 K/mm3 (4.5-11.0) 08/10/16 15:48 RBC 4.22 M/mm3 (3.65-5.03) 08/10/16 15:48 Hgb 12.4 gm/dl (10.1-14.3) 08/10/16 15:48 Hct 38.7 % (30.3-42.9) 08/10/16 15:48 MCV 92 fl (79-97) 08/10/16 15:48 MCH 29 pg (28-32) 08/10/16 15:48 MCHC 32 % (30-34) 08/10/16 15:48 RDW 15.2 % (13.2-15.2) 08/10/16 15:48 Plt Count 356 K/mm3 (140-440) 08/10/16 15:48 Lymph % (Auto) 27.4 % (13.4-35.0) 08/10/16 15:48 [place] % (Auto) 6.9 % (0.0-7.3) 08/10/16 15:48 Eos % (Auto) 3.2 % (0.0-4.3) 08/10/16 15:48 Baso % (Auto) 0.9 % (0.0-1.8) 08/10/16 15:48 Lymph # 2.5 K/mm3 (1.2-5.4) 08/10/16 15:48 King # 0.6 K/mm3 (0.0-0.8) 08/10/16 15:48 Eos # 0.3 K/mm3 (0.0-0.4) 08/10/16 15:48 Baso # 0.1 K/mm3 (0.0-0.1) 08/10/16 15:48 Seg Neutrophils % 61.6 % (40.0-70.0) 08/10/16 15:48 Seg Neutrophils # 5.7 K/mm3 (1.8-7.7) 08/10/16 15:48 PT 11.9 Sec. (12.2-14.9) L 08/10/16 15:48 INR 0.89 (0.87-1.13) 08/10/16 15:48 APTT 28.2 Sec. (24.2-36.6) 08/10/16 15:48 Thrombin Time 15.1 Sec. (15.1-19.6) 08/10/16 15:48 Sodium 143 mmol/L (137-145) 08/10/16 15:48 Potassium 4.5 mmol/L (3.6-5.0) 08/10/16 15:48 Chloride 100.6 mmol/L (98-107) 08/10/16 15:48 Carbon Dioxide 30 mmol/L (22-30) 08/10/16 15:48 Anion Gap 17 mmol/L 08/10/16 15:48 BUN 17 mg/dL (7-17) 08/10/16 15:48 Creatinine 0.9 mg/dL (0.7-1.2) 08/10/16 15:48 Estimated GFR > 60 ml/min 08/10/16 15:48 BUN/Creatinine Ratio 18.88 % 08/10/16 15:48 Glucose 126 mg/dL (65-100) H 08/10/16 15:48 Hemoglobin A1c 6.9 % (4-6) H 08/11/16 05:27 Calcium 9.2 mg/dL (8.4-10.2) 08/10/16 15:48 Troponin T < 0.010 ng/mL (0.00-0.029) 08/11/16 00:08 Triglycerides 167 mg/dL (2-149) H 08/11/16 05:27 Cholesterol 127 mg/dL (50-199) 08/11/16 05:27 LDL Cholesterol Direct 51 mg/dL (50-130) 08/11/16 05:27 HDL Cholesterol 43 mg/dL (40-59) 08/11/16 05:27 Cholesterol/HDL Ratio 2.95 % 08/11/16 05:27 Urine Color Yellow (Yellow) 08/10/16 23:32 Urine Turbidity Clear (Clear) 08/10/16 23:32 Urine pH 5.0 (5.0-7.0) 08/10/16 23:32 Ur Specific [place] 1.018 (1.003-1.030) 08/10/16 23:32 Urine Protein <15 mg/dl mg/dL (Negative) 08/10/16 23:32 Urine Glucose (UA) Neg mg/dL (Negative) 08/10/16 23:32 Urine Ketones Neg mg/dL (Negative) 08/10/16 23:32 Urine Blood Sm (Negative) 08/10/16 23:32 Urine Nitrite Neg (Negative) 08/10/16 23:32 Urine Bilirubin Neg (Negative) 08/10/16 23:32 Urine Urobilinogen < 2.0 mg/dL (<2.0) 08/10/16 23:32 Ur Leukocyte Esterase Sm (Negative) 08/10/16 23:32 Urine WBC (Auto) 4.0 /HPF (0.0-6.0) 08/10/16 23:32 Urine RBC (Auto) 3.0 /HPF (0.0-6.0) 08/10/16 23:32 U Epithel Cells (Auto) 4.0 /HPF (0-13.0) 08/10/16 23:32 Urine Bacteria (Auto) 1+ /HPF (Negative) 08/10/16 23:32 Urine Mucus Few /HPF 08/10/16 23:32 - Imaging and Cardiology CT Scan - head: image reviewed (No acute intracranial changes.)
[2016-08-11] MEDS: NOVOLOG SUB-Q SCH ×2 (17:15→22:39)
[2016-08-11] MEDS ORDERED: AMBIEN PO SCH (22:00)
[2016-08-11] MEDS ORDERED: ZOCOR PO SCH (22:00)
[2016-08-12] MEDS: NEURONTIN PO SCH ×2 (01:01→09:38)
[2016-08-12] MEDS: DUONEB 0.5 MG-3 MG/3 ML SOLN IH SCH ×3 (03:19→13:40)
[2016-08-12 06:36] LABS: Anion Gap 20 mmol/L; BUN/Creatinine Ratio 17.77; Blood Urea Nitrogen 16 mg/dL (7-17); Calcium 8.5 mg/dL (8.4-10.2); Carbon Dioxide 25 mmol/L (22-30); Chloride 103.9 mmol/L (98-107); Glucose 177 mg/dL (65-100); Potassium 4.4 mmol/L (3.6-5.0); Sodium 144 mmol/L (137-145)
[2016-08-12 06:37] LABS: Basophils % (Auto) 0.6 % (0.0-1.8); Eosinophils % (Auto) 1.2 % (0.0-4.3); Hematocrit 36.6 % (30.3-42.9); Hemoglobin 11.9 gm/dl (10.1-14.3); Mean Corpuscular HGB Conc 33 % (30-34); Mean Corpuscular Hemoglobin 30 pg (28-32); Mean Corpuscular Volume 92 fl (79-97); Platelet Count 337 K/mm3 (140-440); Red Cell Distribution Width 15.6 % (13.2-15.2); White Blood Count 10.7 K/mm3 (4.5-11.0)
[2016-08-12] MEDS: NOVOLOG SUB-Q SCH ×2 (09:33→12:49)
[2016-08-12] MEDS: PEPCID IV SCH (09:34)
[2016-08-12] MEDS: COLACE PO SCH (09:34)
[2016-08-12] MEDS: NORCO 5/325 PO PRN (09:35)
[2016-08-12] MEDS: TESSALON PERLES PO SCH (09:35)
[2016-08-12 09:39] VITALS: BP 142/92
--- NOTE | 2016-08-12 10:59 | Discharge Summary ---
Providers - Providers Date of Admission: 08/10/16 23:17 Date of discharge: 08/12/16 Attending physician: MICHELLE TURPIN MD 08/10/16 23:41 Consult to Case Management [CONS] Routine Services Needed at Discharge: Physical Therapy Notified:: Case management Was contact made?: Yes If yes, spoke with:: Cesia-case management Time called:: 09:30 Consult to Dietitian/Nutrition [CONS] Routine Physician Instructions: Reason For Exam: Reason for Consult: Nutrition Recommendations Reason for Consult: Diet education Occupational Therapy Evaluate and Treat [CONS] Routine Comment: Reason For Exam: Neuro deficits Physical Therapy Evaluation and Treat [CONS] Routine Comment: Reason For Exam: Neuro deficits 08/10/16 23:44 Consult to Physician [CONS] Routine Consulting Provider: MOISES EGAN Reason For Exam: possible cva Place consult to:: dr egan Notified:: dr egan 08/10/16 23:47 Speech Therapy Evaluation and Treat [CONS] Routine Reason For Exam: evaluate and treat Primary care physician: MATHEW SMYTH Hospitalization Reason for admission: RLE weakness, previous CVA with residual right sided weakness Condition: Stable Disposition: DC/TX HOME UNDER HOME HEALTH Time spent for discharge: 31 minutes - Discharge Diagnoses (1) History of stroke Status: Acute (2) Right leg weakness Status: Acute Core Measure Documentation - Palliative Care Palliative Care/ Comfort Measures: Not Applicable - Core Measures Any of the following diagnoses?: stroke - Stroke Discharge Requirements Statin for LDL = or >70 mg/dl on DC: Yes Anticoag for atrial fib/atrial flutter: Not Applicable Antithrombotic for ischemic stroke: Yes Exam - Physical Exam Narrative exam: Not in cardiopulmonary distress. The patient is obese. Vital signs as documented. Head exam is unremarkable. No scleral icterus . Neck is without jugular venous distension, thyromegaly, or carotid bruits. Lungs are clear to auscultation. Cardiac exam reveals regular rate and Rhythm. First and second heart sounds normal. No murmurs, rubs or gallops. Abdominal exam reveals normal bowel sounds, no masses, no organomegaly and no aortic enlargement. Extremities are nonedematous and both femoral and pedal pulses are normal. PATIENT ADMITTING REPRESENTATIVE: Alert and oriented 3. Mild weakness of the right lower and upper extremities compared to the left side. - Constitutional Vitals: Temp Pulse Resp BP Pulse Ox 98.2 F 115 H 20 142/92 97 08/12/16 08:00 08/12/16 08:33 08/12/16 08:33 08/12/16 08:00 08/12/16 08:23 Plan Activity: advance as tolerated Weight Bearing Status: Weight Bear as Tolerated Diet: low fat, low cholesterol, low salt, diabetic Durable Medical Equipment Needed Upon Discharge: Walker-Rolling Follow up with: MATHEW SMYTH MD [Primary Care Provider] - 3-5 Days [place] SANCHEZ MD [Staff Physician] - 7 Days Prescriptions: Clopidogrel Bisulfate [Plavix] 75 mg PO DAILY #30 tablet Clopidogrel Bisulfate [Plavix] 75 mg PO QDAY #30 tablet
--- NOTE | 2016-08-16 11:44 | Vascular Lab Report ---
CAROTID DUPLEX STUDY: RIGHT PSVEDV CCA [id number] CCA DIST:[id number] ICA PROX:[id number] ICA MID:6526 ICA DIST:[id number] ECA: 229 VERT: 39 16 LEFT PSVEDV CCA [id number] CCA DIST:5412 ICA PROX:4314 ICA MID:6528 ICA DIST:7526 ECA: 143 VERT: 30 11 REASON FOR EXAM: Stroke. COMMENTS ON THE RIGHT: Doppler frequency analysis is consistent with 16 to 49 percent diameter reduction of the internal carotid artery. Minimal amount of plaque is seen. The common carotid artery is patent. The external carotid artery is patent. The vertebral artery has antegrade flow. COMMENTS ON THE LEFT: Doppler frequency analysis is consistent with 16 to 49 percent diameter reduction of the internal carotid artery. Minimal amount of plaque is seen. The common carotid artery is patent. The external carotid artery is patent. The vertebral artery has antegrade flow. IMPRESSION: Less than 50% diameter reduction in the internal carotid arteries bilaterally. Consider repeat carotid artery duplex in 12 months.
== END 2016-08-12 16:10 | disposition home health service (06) | DRG 65 ==
LOC: ED 13:59 → 4A 23:17
PROVIDERS: ADMIT Internal Medicine; ATTEND Internal Medicine
DX: I63.9 Cerebral infarction, unspecified (principal); G81.91 Hemiplegia, unspecified affecting right dominant side; J45.909 Unspecified asthma, uncomplicated; M19.90 Unspecified osteoarthritis, unspecified site; E11.9 Type 2 diabetes mellitus without complications; G89.29 Other chronic pain; M54.9 Dorsalgia, unspecified; E66.9 Obesity, unspecified; Z88.6 Allergy status to analgesic agent; Z88.8 Allergy status to other drugs, medicaments and biological substances; Z68.35 Body mass index [BMI] 35.0-35.9, adult; Z83.3 Family history of diabetes mellitus; Z82.49 Family history of ischemic heart disease and other diseases of the circulatory system; Z91.040 Latex allergy status; Z91.048 Other nonmedicinal substance allergy status; Z79.899 Other long term (current) drug therapy; Z90.710 Acquired absence of both cervix and uterus; Z98.890 Other specified postprocedural states
CPT/HCPCS: 36415; 70450; 71010; 80048; 80061; 81001; 82962; 83036; 84484; 85025; 85610; 85670; 85730; 93005; 93010; 93880; 94640; G8996-GN; G8997-GN; G8998-GN; J1815; J2405